=== PATIENT | female | born 1980 ===

== ENCOUNTER 2017-03-22 15:14 | Emergency (ER) | payer OTHER ==
[2017-03-22 15:26] VITALS: RESP 20
[2017-03-22] MEDS ORDERED: Lactated Ringer's 1,000 ML IV STA (15:29)
--- NOTE | 2017-03-22 15:55 | ED PDOC ---
HPI: Female Pain Time Seen by Provider: 03/22/17 15:22 Chief Complaint (Nursing): Female Genitourinary Chief Complaint (Provider): Vaginal Bleeding History Per: Patient History/Exam Limitations: no limitations Onset/Duration Of Symptoms: Days (x3) Current Symptoms Are (Timing): Still Present Additional Complaint(s): Maria Del Rosario Ty is a 36 year old female with no significant past medical history, who presents to the ED complaining of vaginal bleeding x3 days. Patient states she has had crampy pelvic pain since Tuesday and noticed vaginal spotting on Tuesday. States she took a test on Tuesday which was positive. She says the bleeding increased and she saw her Office Equipment Technician this morning, who told her it could be normal and started her on vitamins. Patient reports more severe bleeding with clots and more intense cramping 1 hour prior to arrival. Patient is 2, para 1, with 1 normal spontaneous vaginal delivery in 2012. LMP 02/01/2017. Patient is 7 weeks . PMD: Dr. Kathy Sow Past Medical History Reviewed: Historical Data, Nursing Documentation, Vital Signs Vital Signs: Last Vital Signs Temp 99.1 F 03/22/17 15:23 Pulse 97 H 03/22/17 15:23 Resp 20 03/22/17 15:23 BP 107/74 03/22/17 15:23 Pulse Ox 100 03/22/17 15:23 - Medical History PMH: No Chronic Diseases - Surgical History Surgical History: No Surg Hx - Family History Family History: States: Unknown Family Hx - Social History Current smoker - smoking cessation education provided: No Ex-Smoker (has not smoked in the last 12 months): No Alcohol: None Drugs: Denies - Allergies Allergies/Adverse Reactions: Allergies Allergy/AdvReac Type Severity Reaction Status Date / Time No Known Allergies Allergy Verified 03/22/17 15:21 Review of Systems ROS Statement: Except As Marked, All Systems Reviewed And Found Negative (and as per HPI) Gastrointestinal: Positive for: Abdominal Pain Genitourinary Female: Positive for: Vaginal Bleeding, Pelvic Pain Physical Exam - Reviewed Nursing Documentation Reviewed: Yes Vital Signs Reviewed: Yes - Physical Exam Appears: Positive for: Non-toxic, No Acute Distress Head Exam: Positive for: ATRAUMATIC, NORMOCEPHALIC Skin: Positive for: Warm, Dry. Negative for: Pallor Gastrointestinal/Abdominal: Positive for: Soft, Tenderness (mild suprapubic). Negative for: Mass, Distended, Guarding, Rebound Back: Positive for: Normal Inspection. Negative for: Decreased ROM Neurologic/Psych: Positive for: Alert, Oriented. Negative for: Motor/Sensory Deficits - Laboratory Results Result Diagrams: 03/22/17 15:52 - ECG O2 Sat by Pulse Oximetry: 100 (RA) Pulse Ox Interpretation: Normal Medical Decision Making Medical Decision Making: Time: 15:28 Initial Impression: Vaginal bleeding, 1st trimester . Differentials include, but are not limited to threatened miscarriage, spontaneous miscarriage , UTI, dehydration Plan: --Beta-HCG, quantitative --ED Urine --ED Urine dipstick --CBC w/ differential --Chlamydia/GC RNA, TMA --Lactated Ringers 1,000 ml IV --IV Insertion --US OB Transvaginal --Reevaluation 17:16 Ultrasound reviewed. Findings noted as follows: UTERUS: Gestational sac: Measures 0.7 centimeter. pole not visualized. Uterus measures 9.0 x 4.9 x 4.7 cm. Normal in size and appearance. CERVIX: Long and closed. No cervical abnormality seen. RIGHT OVARY: Measures 3.4 x 2.0 x 1.4 cm. No mass lesion. Normal flow. Cyst measuring 1.6 x 1.2 x 1.3 centimeter. LEFT OVARY: Measures 2.9 x 1.8 x 3.1 cm. No solid mass. Normal flow. FREE FLUID: None. OTHER FINDINGS: None. IMPRESSION: Intrauterine gestational sac, but pole not visualized. Findings may represent early normal/abnormal . Close clinical follow-up with serial pelvic sonography an serum beta HCG levels is recommended. DW pt findings. Pt to see her MD in 48 hours OR return to ER for repeat beta hcg. Bleeding precautions given. Ectopic precautions given. Scribe Attestation: Documented by Alex Camacho acting as a scribe for Xin Duffy MD. Scribe Attestation: All medical record entries made by the Scribe were at my direction and personally dictated by me. I have reviewed the chart and agree that the record accurately reflects my personal performance of the history, physical exam, medical decision making, and the department course for this patient. I have also personally directed, reviewed, and agree with the discharge instructions and disposition. Disposition - Clinical Impression Clinical Impression: Threatened miscarriage - Disposition Referrals: Kathy Sow [Staff Provider] - 03/24/17 Disposition: Routine/Home Disposition Time: 16:00 Condition: STABLE Additional Instructions: VISITA DR SOW O REGRESA ACQUI EN 2 TAM A RIPITAR VANG ANALISIS DE MARE REGRESA A LA SLADE DE EMERGENCIA INMEDIATO SI USTED TIENE MUCHO DOLOR, USTED SIENTE A PERDIR CONOSIMIENTO, USTED PERDIO CONOSIMIENTO, O POR OTRAS MALAS SINTOMAS. Instructions: Threatened Miscarriage (ED), Pelvic Rest (ED) Forms: [facility] ED School/Work Excuse Print Language: BRAZILIAN
[2017-03-22 15:59] LABS: BASO % 0.3 % (0.0-2.0); EOS % 0.5 % (0.0-4.0); HEMATOCRIT 38.5 % (34.0-47.0); MEAN CELL VOLUME 82.8 fl (81.0-99.0); MEAN CORPUSCULAR HEMOGLOBIN 27.7 pg (27.0-31.0); MEAN CORPUSCULAR HGB CONC 33.5 g/dL (33.0-37.0); MEAN PLATELET VOLUME 9.5 fl (7.2-11.7); MONO # 0.7 K/uL (0.0-0.8); MONO % 7.3 % (0.0-10.0); NEUT # 6.8 K/uL (1.8-7.0); NEUT % 70.9 % (50.0-75.0); NRBC % 0.1 % (0.0-0.0); RED CELL DISTRIBUTION WIDTH 14.3 % (11.5-14.5); WHITE BLOOD COUNT 9.7 K/uL (4.8-10.8)
[2017-03-22] MEDS ORDERED: Dextrose 5%/Lactated Ringer's 1,000 ML IV SCH (16:00)
--- NOTE | 2017-03-22 17:18 | US ---
PROCEDURE: OB Pelvic Ultrasound HISTORY: vaginal bleeding preg COMPARISON: Pelvic ultrasound dated 12/22/2011. FINDINGS: UTERUS: Gestational sac: Measures 0.7 centimeter. pole not visualized. Uterus measures 9.0 x 4.9 x 4.7 cm. Normal in size and appearance. CERVIX: Long and closed. No cervical abnormality seen. RIGHT OVARY: Measures 3.4 x 2.0 x 1.4 cm. No mass lesion. Normal flow. Cyst measuring 1.6 x 1.2 x 1.3 centimeter. LEFT OVARY: Measures 2.9 x 1.8 x 3.1 cm. No solid mass. Normal flow. FREE FLUID: None. OTHER FINDINGS: None. IMPRESSION: Intrauterine gestational sac, but pole not visualized. Findings may represent early normal/abnormal . Close clinical follow-up with serial pelvic sonography an serum beta HCG levels is recommended.
[2017-03-22 18:56] VITALS: BP 120/70; PULSE 72; TEMP 98.7
[2017-03-22 20:41] VITALS: O2SAT 100
== END 2017-03-22 19:03 | disposition home or self-care (01) ==
LOC: H.ER 15:14
DX: O20.0 Threatened abortion (principal); Z3A.01 Less than 8 weeks gestation of pregnancy; O23.41 Unspecified infection of urinary tract in pregnancy, first trimester
CPT/HCPCS: 76817; 81025; 84702; 85025; 87491; 87591; 96360; 96361; 99284; J7120

== ENCOUNTER 2018-06-23 10:56 | Emergency (ER) | payer OTHER ==
[2018-06-23 11:08] VITALS: BMI 23.3
--- NOTE | 2018-06-23 11:27 | ED PDOC ---
HPI: Female Pain Time Seen by Provider: 06/23/18 11:15 Chief Complaint (Nursing): Female Genitourinary Chief Complaint (Provider): Vaginal bleeding History Per: Patient History/Exam Limitations: no limitations Onset/Duration Of Symptoms: Days (x2) Current Symptoms Are (Timing): Still Present Additional Complaint(s): 37 year old female presents to the ED complaining of vaginal bleeding associated with lower abdominal cramping worse over the past 2 days. Patient was followed in clinic for vaginal bleeding and an ultrasound 10 days ago which revealed viable intrauterine . Denies any injury or trauma. As per patient, bleeding is moderate with clots. PMD: [facility] Past Medical History Reviewed: Historical Data, Nursing Documentation, Vital Signs Vital Signs: Last Vital Signs Temp 98.3 F 06/23/18 11:08 Pulse 83 06/23/18 11:08 Resp 20 06/23/18 11:08 BP 105/56 L 06/23/18 11:08 Pulse Ox 99 06/23/18 11:08 - Medical History PMH: No Chronic Diseases - Surgical History Surgical History: No Surg Hx - Family History Family History: States: Unknown Family Hx - Immunization History Hx Tetanus Toxoid Vaccination: No Hx Influenza Vaccination: No Hx Pneumococcal Vaccination: No - Allergies Allergies/Adverse Reactions: Allergies Allergy/AdvReac Type Severity Reaction Status Date / Time No Known Allergies Allergy Verified 06/23/18 11:16 Review of Systems ROS Statement: Except As Marked, All Systems Reviewed And Found Negative Gastrointestinal: Positive for: Abdominal Pain (Lower abdominal cramping) Genitourinary Female: Positive for: Vaginal Bleeding Musculoskeletal: Negative for: Other (Trauma or injury) Physical Exam - Reviewed Nursing Documentation Reviewed: Yes Vital Signs Reviewed: Yes - Physical Exam Appears: Positive for: No Acute Distress Head Exam: Positive for: ATRAUMATIC, NORMOCEPHALIC Skin: Positive for: Normal Color, Warm, Dry Eye Exam: Positive for: Normal appearance Neck: Positive for: Normal, Painless ROM Cardiovascular/Chest: Positive for: Regular Rate, Rhythm Respiratory: Positive for: Normal Breath Sounds. Negative for: Wheezing, Respir atory Distress Gastrointestinal/Abdominal: Positive for: Normal Exam, Soft. Negative for: Tenderness Pelvic Exam: Positive for: No Masses (adnexa), Blood (Moderate amount of blood in vault), Other (cervix is fingertip. Small amount of tissue protruding from cervix). Negative for: Tender Adnexa Extremity: Positive for: Normal ROM Neurological/Psych: Positive for: Awake, Alert, Normal Tone, Oriented - Laboratory Results Result Diagrams: 06/23/18 11:35 - ECG O2 Sat by Pulse Oximetry: 99 (RA) Pulse Ox Interpretation: Normal Medical Decision Making Medical Decision Making: Initial Impression: Vaginal bleeding Initial Plan: Will obtain transvaginal US and Beta HCG stat Scribe Attestation: Documented by Chris Morfin acting as a scribe for Ruslan Bhardwaj MD. Provider Scribe Attestation: All medical record entries made by the Scribe were at my direction and personally dictated by me. I have reviewed the chart and agree that the record accurately reflects my personal performance of the history, physical exam, medical decision making, and the department course for this patient. I have also personally directed, reviewed, and agree with the discharge instructions and disposition. Disposition - Clinical Impression Clinical Impression: Incomplete - Patient ED Disposition Is Patient to be Admitted: No Counseled Patient/Family Regarding: Studies Performed, Diagnosis, Need For Followup - Disposition Referrals: Doug Sutton DO [Staff Provider] - Disposition: Routine/Home Disposition Time: 16:08 Condition: FAIR Instructions: Miscarriage Forms: [employer] (French) Print Language: DANISH
[2018-06-23 11:55] LABS: BASO % 0.4 % (0.0-2.0); EOS % 0.4 % (0.0-4.0); LYMPH % 20.9 % (20.0-40.0); MEAN CELL VOLUME 82.8 fl (81.0-99.0); MEAN CORPUSCULAR HEMOGLOBIN 27.9 pg (27.0-31.0); MEAN CORPUSCULAR HGB CONC 33.7 g/dL (33.0-37.0); MEAN PLATELET VOLUME 9.4 fl (7.2-11.7); MONO # 0.6 K/uL (0.0-0.8); MONO % 6.6 % (0.0-10.0); NEUT # 6.9 K/uL (1.8-7.0); NEUT % 71.7 % (50.0-75.0); NRBC % 0.1 % (0.0-0.0); RBC 4.65 Mil/uL (3.80-5.20); RED CELL DISTRIBUTION WIDTH 13.9 % (11.5-14.5); WHITE BLOOD COUNT 9.7 K/uL (4.8-10.8)
--- NOTE | 2018-06-23 14:02 | US ---
Date of service: 06/23/2018 PROCEDURE: OB Pelvic Ultrasound HISTORY: Vag bleed, tissue from cervix LMP: 04/16/2018 suggesting 9 week 5 day gestation. COMPARISON: None available. FINDINGS: UTERUS: No gestational sac is identified within the region of the endometrial cavity. Medially measures 15.0 mm and appears mildly heterogeneous in echogenicity. Uterus measures 10.9 x 6.4 x 4.6 cm. Uterus is mildly enlarged without focal mass or cystic changes associated. CERVIX: Measures 3.5 cm. Long and closed. Cervix appears inhomogeneous in echotexture and could reflect a few nabothian cyst though fluid or soft tissue or not excluded within the endocervical canal. Definition is limited due to trans abdominal technique. RIGHT OVARY: Measures 3.0 x 2.0 x 2.0 cm. No mass lesion. Normal flow. There is a complex cyst identified measuring 1.7 x 1.6 x 1.4 cm with the right ovary otherwise unremarkable. LEFT OVARY: Not identified. No suspicious adnexal mass or fluid collection appreciable. FREE FLUID: None. OTHER FINDINGS: None. IMPRESSION: No intrauterine gestation is identified though prominent endometrium is identified up to 15.0 mm on transabdominal technique. Somewhat heterogeneous changes are associated with the cervix could reflect multiple nabothian cysts though fluid or debris are not excluded in the endocervical canal. Complex cyst right ovary 1.7 cm greatest dimension. Consider early nonvisualized intrauterine gestation though clinical history supports probable failure of gestation. This is the differential diagnosis and follow-up serial beta HCG analysis is advised as well as one-week follow-up transvaginal pelvic ultrasound.
--- NOTE | 2018-06-23 15:58 | CP.PCM.CON ---
<Марина Newton - Last Filed: 06/23/18 16:30> History of Present Illness - History of Present Illness History of Present Illness: Maria Del Rosario is a 37 year old at 9 weeks 5 days by LMP of 04/16/18, presents to the ED today due to cramping and moderate vaginal bleeding that began this morning. She has been having intermittent vaginal bleeding since the beginning of the but had a dating US 06/13 that showed a viable IUP at 7 weeks 3 days with cardiac activity. Today was this first time she's had heavy bleeding or cramping. No nausea, vomiting, diarrhea or R/LUQ pain. She's unsure whether she passed any tissue. OB History G1 - 2012, with no complications G2 - SAB February 2017 G3 - current Review of Systems - Constitutional Constitutional: absent: Anorexia, Chills, Fever - Cardiovascular Cardiovascular: absent: Chest Pain - Respiratory Respiratory: absent: Dyspnea on Exertion - Gastrointestinal Gastrointestinal: absent: Abdominal Pain, Change in Bowel Habits, Melena, Nausea, Vomiting - Genitourinary Genitourinary: absent: Hematuria, Pyuria, Urinary Frequency - Reproductive: Female Reproductive:Female: absent: As Per HPI - Menstruation Menstruation: absent: As Per HPI Past Patient History - Past Social History Smoking Status: Never Smoked - PSYCHIATRIC Hx Substance Use: No - SURGICAL HISTORY Hx Surgeries: Yes Other/Comment: childbirth - ANESTHESIA Hx Anesthesia: Yes Hx Anesthesia Reactions: No Hx Malignant Hyperthermia: No Meds Allergies/Adverse Reactions: Allergies Allergy/AdvReac Type Severity Reaction Status Date / Time No Known Allergies Allergy Verified 06/23/18 11:16 Physical Exam - Constitutional Appears: Well, Non-toxic, No Acute Distress - Eye Exam Eye Exam: EOMI, Normal appearance. absent: Conjunctival injection - ENT Exam ENT Exam: Mucous Membranes Moist - Respiratory Exam Respiratory Exam: NORMAL BREATHING PATTERN - Cardiovascular Exam Cardiovascular Exam: REGULAR RHYTHM - GI/Abdominal Exam GI & Abdominal Exam: Normal Bowel Sounds, Soft. absent: Distended, Firm, Guarding, Tenderness Results - Vital Signs Recent Vital Signs: Last Vital Signs Temp 98.7 F 06/23/18 15:33 Pulse 78 06/23/18 15:33 Resp 16 06/23/18 15:33 BP 95/63 L 06/23/18 15:33 Pulse Ox 100 06/23/18 15:33 - Labs Result Diagrams: 06/23/18 11:35 Labs: Laboratory Results - last 24 hr 06/23/18 06/23/18 06/23/18 11:35 11:35 11:35 WBC 9.7 RBC 4.65 Hgb 13.0 Hct 38.5 MCV 82.8 MCH 27.9 MCHC 33.7 RDW 13.9 Plt Count 224 MPV 9.4 Neut % (Auto) 71.7 Lymph % (Auto) 20.9 [place]bers[place] % (Auto) 6.6 Eos % (Auto) 0.4 Baso % (Auto) 0.4 Neut # (Auto) 6.9 Lymph # (Auto) 2.0 [place] # (Auto) 0.6 Eos # (Auto) 0.0 Baso # (Auto) 0.0 Beta HCG, Quant 08867.00 Blood Type A POSITIVE Antibody Screen Negative BBK History Checked Patient has bt - Impressions Impression: ULTRASOUND REPORT FROM 06/23/18 Uterus measures 10.9 x 6.4 x 4.6cm No gestational sac identified within the region of the endometrial cavity. There is a complex cyst of the right ovary measuring 1.7 x 1.6 x 1.4cm We were able to obtain the ultrasound report from [place], report summarized below: US done 06/13, CRL of 1.27cm corresponding to a GA of 7 weeks and 3 days There's a R ovarian cyst measuring 0.9 x 0.9 x 1.3cm Cardiac activity seen with FHR 161 bpm Assessment & Plan (1) Complete Assessment and Plan: 37 year old female at 9 weeks 5 days by LMP with ultrasonographic and clinical evidence of a complete spontaneous . Her US from 06/13 confirms a viable IUP with no evidence of an ectopic . Her bHCG from today is consistent with an approximately 10 week and clinically her vaginal bleeding and cramping corresponds with a miscarriage. Based on her US from today she has likely passed all products of conception. There is a very low risk of ectopic with her confirmed IUP at 7 weeks, the cyst on her R ovary and is only minimally enlarged and most likely represents a corpus luteum cyst. - All results were discussed with the patient - At this time she does not need a follow-up ultrasound or quantitative beta hCG - Recommend she f/u appt with the clinic in 2-4 weeks to have a qualitative hCG to confirm resolution of the - Return precautions discussed with patient, she verbalized understanding Patient elected to use her family member as a hadoop architect, declined professional translation services. Status: Acute <Doug Sutton - Last Filed: 06/24/18 11:38> Results - Vital Signs Recent Vital Signs: Last Vital Signs Temp 97.6 F 06/23/18 16:15 Pulse 77 06/23/18 16:15 Resp 20 06/23/18 16:15 BP 107/64 06/23/18 16:15 Pulse Ox 98 06/23/18 16:15 - Labs Result Diagrams: 06/23/18 11:35 Labs: Laboratory Results - last 24 hr 06/23/18 06/23/18 06/23/18 11:35 11:35 11:35 WBC 9.7 RBC 4.65 Hgb 13.0 Hct 38.5 MCV 82.8 MCH 27.9 MCHC 33.7 RDW 13.9 Plt Count 224 MPV 9.4 Neut % (Auto) 71.7 Lymph % (Auto) 20.9 Culberson % (Auto) 6.6 Eos % (Auto) 0.4 Baso % (Auto) 0.4 Neut # (Auto) 6.9 Lymph # (Auto) 2.0 [place] # (Auto) 0.6 Eos # (Auto) 0.0 Baso # (Auto) 0.0 Beta HCG, Quant 99797.00 Blood Type A POSITIVE Antibody Screen Negative BBK History Checked Patient has bt Assessment & Plan - Assessment and Plan (Free Text) Plan: WITH OB fellow i saw this pt. She had sono at [facility] which we rec'd report. There was IUP 7w +FCA. Today no IUP seen. Complete ab. Pt understands results and will follow up next week [facility] for repeat BHCG and follow up. GIANNA
[2018-06-23 16:16] VITALS: BP 107/64; PULSE 77; RESP 20; TEMP 97.6; O2SAT 98
== END 2018-06-23 16:17 | disposition home or self-care (01) ==
LOC: H.ER 10:56
DX: O03.4 Incomplete spontaneous abortion without complication (principal); Z3A.09 9 weeks gestation of pregnancy; N83.291 Other ovarian cyst, right side